=== PATIENT | female | born 1970 ===

== ENCOUNTER 2016-09-04 08:37 | Emergency (ER) | payer OTHER ==
[2016-09-04 09:40] VITALS: BP 129/89
--- NOTE | 2016-09-04 10:00 | Emergency Department Report ---
Entered by DO FULLER, acting as scribe for CHARLOTTE BERG NP. Chief Complaint: Back Pain/Injury Stated Complaint: LOWER BACK PAIN Time Seen by Provider: 09/04/16 09:46 - HPI History of Present Illness: 45 y/o presents c/o lower back pain. Sx include pain with urination - ROS Review of Systems: +pain with urination - Exam Vital Signs: Vital Signs 09/04/16 09:33 Temperature 97.7 F Pulse Rate 65 Respiratory 18 Rate Blood Pressure 129/89 O2 Sat by Pulse 100 Oximetry Physical Exam: pain across lumbar spine, no tenderness noted. MSE screening note: Focused history and physical exam performed. Due to findings the following was ordered: labs, xr ED Disposition for MSE Condition: Stable This documentation as recorded by the scribeALINA RYAN,accurately reflects the service I personally performed and the decisions made by OTIS prater TRACY M , MAINTENANCE WORKER HOUSE TRAILER.
--- NOTE | 2016-09-04 10:33 | XRay Report ---
AP AND LATERAL LUMBOSACRAL SPINE: History: Low back pain. The vertebral bodies are well mineralized and normal in alignment and vertebral height with well preserved interspace distances. The visualized portions of the posterior elements are normal. IMPRESSION: Normal study.
--- NOTE | 2016-09-04 11:25 | Emergency Department Report ---
ED Back Pain/Injury HPI - General Chief Complaint: Back Pain/Injury Stated Complaint: LOWER BACK PAIN Time Seen by Provider: 09/04/16 09:46 Source: patient Limitations: No Limitations - History of Present Illness Initial Comments: This a 45-year-old female that presents with lower back pain for 4 days. She does not appear toxic or in any sign of distress. Patient pain level is a 9 out of 10. Patient is a hotel housekeeper in a hotel. Patient stating has prior history to her chronic lower back pain. Denies any bladder stability, numbness or tingling, shortness of breath, dysuria, polyuria or chest pain. Patient denies symptoms. Denies CVA tenderness. Patient stated and taking over-the- counter Aleve with subside the pain but doesn't cure it. Patient stated 1 bending over makes the pain worse. Patient denies any trauma. Denies any injury to back. Patient denies any radiation of pain. Denies any numbness or tingling sensations. Riddhi the letterpress printing machinist is present during interview. Patient denies any past medical history or allergies. MD Complaint: back pain -: Gradual, days(s) (4) Similar Symptoms Previously: Yes (last year) Place: work Radiation: none Severity scale (0 -10): 8 Quality: aching Consistency: constant Improves With: supine, other (Aleve) Worsens With: movement, walking, other (bending) Context: while lifting, bending Associated Symptoms: denies other symptoms. denies: confusion, weakness, chest pain, numbness, cough, difficulty urinating, diaphoresis, incontinence, fever/ chills, constipation, headaches, abdominal pain, loss of appetite, malaise, nausea/vomiting, rash, seizure, shortness of breath, syncope - Related Data Previous Rx's Medication Instructions Recorded Last Taken Type Naproxen [Naprosyn TAB] 500 mg PO BID PRN #20 tablet 09/04/16 Unknown Rx Prednisone [predniSONE] 40 mg PO QDAY 5 Days 09/04/16 Unknown Rx Allergies Allergy/AdvReac Type Severity Reaction Status Date / Time No Known Allergies Allergy Unverified 09/04/16 09:33 ED Review of Systems ROS: Stated complaint: LOWER BACK PAIN Other details as noted in HPI Comment: All other systems reviewed and negative Constitutional: denies: chills, fever Eyes: denies: eye pain, eye discharge, vision change ENT: denies: ear pain, throat pain Respiratory: denies: cough, shortness of breath, wheezing Cardiovascular: denies: chest pain, palpitations Endocrine: no symptoms reported Gastrointestinal: denies: abdominal pain, nausea, diarrhea Genitourinary: denies: urgency, dysuria, discharge Musculoskeletal: denies: back pain, joint swelling, arthralgia Skin: denies: rash, lesions Neurological: denies: headache, weakness, paresthesias Psychiatric: denies: anxiety, depression Hematological/Lymphatic: denies: easy bleeding, easy bruising ED Past Medical Hx - Past Medical History Previous Medical History?: No - Surgical History Past Surgical History?: Yes Additional Surgical History: tubal ligation - Social History Smoking Status: Never Smoker Substance Use Type: None - Medications Home Medications: Home Medications Medication Instructions Recorded Confirmed Last Taken Type Naproxen [Naprosyn TAB] 500 mg PO BID PRN #20 tablet 09/04/16 Unknown Rx Prednisone [predniSONE] 40 mg PO QDAY 5 Days 09/04/16 Unknown Rx ED Physical Exam - General Limitations: No Limitations General appearance: alert, in no apparent distress - Head Head exam: Present: atraumatic, normocephalic - Eye Eye exam: Present: normal appearance - ENT ENT exam: Present: mucous membranes moist - Neck Neck exam: Present: normal inspection - Respiratory Respiratory exam: Present: normal lung sounds bilaterally. Absent: respiratory distress - Cardiovascular Cardiovascular Exam: Present: regular rate, normal rhythm. Absent: systolic murmur, diastolic murmur, rubs, gallop - GI/Abdominal GI/Abdominal exam: Present: soft, normal bowel sounds - Extremities Exam Extremities exam: Present: normal inspection - Back Exam Back exam: Present: normal inspection, full ROM, tenderness (lumbar region). Absent: CVA tenderness (R), CVA tenderness (L) - Expanded Back Exam Expanded Back exam: Absent: saddle anesthesia Back exam: Negative Straight Leg Raising: Left, Right - Neurological Exam Neurological exam: Present: alert, oriented X3, CN II-XII intact - Psychiatric Psychiatric exam: Present: normal affect, normal mood - Skin Skin exam: Present: warm, dry, intact, normal color. Absent: rash ED Course Vital Signs 09/04/16 09:33 Temperature 97.7 F Pulse Rate 65 Respiratory 18 Rate Blood Pressure 129/89 O2 Sat by Pulse 100 Oximetry ED Medical Decision Making - Medical Decision Making Ed course: This is a 45-year-old female that presents with chronic lower back pain. 1-I prescribed Solu-Medrol IM. 2- I prescribed ibuprofen 600 mg by mouth. 3- I instructed patient to follow up with orthopedic doctor in 3-5 days and if symptoms worsen to report back to emergency room. 4- I instructed the patient she may need MRI. 5- she agrees with the diagnosis and the treatment plan. No further questions noted at this time. 6- I discharged her with a prescription for prednisone 40 mg for 5 days and naproxen 500 mg to take at home 7- at this time the patient does not seem toxic or ill appearance. No signs of any distress. Critical care attestation.: If time is entered above; I have spent that time in minutes in the direct care of this critically ill patient, excluding procedure time. ED Disposition Clinical Impression: Lumbar radiculopathy Chronic low back pain Qualifiers: Back pain laterality: unspecified Sciatica presence: unspecified whether sciatica present Qualified Code(s): M54.5 - Low back pain; G89.29 - Other chronic pain Disposition: DISCHARGED TO HOME OR SELFCARE Is pt being admited?: No Does the pt Need Aspirin: No Condition: Stable Instructions: Lumbar Radiculopathy (ED), Back Pain (ED) Additional Instructions: Please follow up with your orthopedic doctor in 3-5 days. You may need an MRI if symptoms continue. Take medication as prescribed. If symptoms worsen such as bladder instability, numbness or tingling in the extremities, chest pain, shortness of breath, or unbearable pain please report back to emergency room. Prescriptions: Naproxen [Naprosyn TAB] 500 mg PO BID PRN #20 tablet PRN Reason: Pain Prednisone [predniSONE] 40 mg PO QDAY 5 Days Referrals: PRIMARY CAREMD [Primary Care Provider] - 3-5 Days MAGGI CRUZ MD [Staff Physician] - 3-5 Days Forms: Work/School Release Form(ED)
[2016-09-04] MEDS: MOTRIN PO ONE (11:26)
[2016-09-04 12:02] LABS: Bacteria,Urine 1+ /HPF (Negative); Bilirubin,Urine NEG (Negative); Blood,Urine LG (Negative); Ketones,Urine NEG (Negative); Leukocyte Esterase,Urine TR (Negative); Mucus,Urine FEW /HPF; Nitrite,Urine NEG (Negative); Protein,Urine <15 mg/dL mg/dL (Negative); Urobilinogen,Urine < 2.0 mg/dL (<2.0); WBC,Urine < 1.0 /HPF (0.0-6.0)
== END 2016-09-04 12:25 | disposition home or self-care (01) ==
LOC: ED 08:37
DX: M54.16 Radiculopathy, lumbar region (principal); G89.29 Other chronic pain; Z98.51 Tubal ligation status
CPT/HCPCS: 72100; 81001; 81025; 96372; 99284; J2920